=== PATIENT | female | born 1970 | race Asian ===

== ENCOUNTER 2018-01-21 07:31 | Inpatient (IN) | payer MEDICAID ==
[~2018-01-21] VITALS: Ht 147.3 cm; Wt 57.0 kg
[2018-01-21 08:54] LABS: Basophils # (auto) 0 uL; Basophils % (auto) 0.2 % (0.0-2.0); Eosinophils # (auto) 0 uL; Eosinophils % (auto) 0.1 % (0.0-7.0); Hemoglobin 14.2 g/dL (12.2-16.2); Lymphocytes # (auto) 0.4 uL; Mean Corpuscular Volume 81.1 fL (80.0-100.0); Monocytes # (auto) 0.3 uL; Red Cell Distribution Width 13.7 % (11.8-14.3)
[2018-01-21 08:56] LABS: Hematocrit 42.7 % (36.0-46.0); Lymphocytes % (auto) 5.3 % (10.0-50.0); Mean Corpuscular Hgb Conc. 33.3 g/dL (32.0-36.0); Monocytes % (auto) 3.9 % (0.0-12.0); Neutrophils # (auto) 7.6 uL; Neutrophils % (auto) 90.5 % (37.0-80.0); Platelet Count (auto) 330 10^3/uL (140-450); Red Blood Cells 5.27 10^6/uL (4.0-5.20); White Blood Cell 8.4 10^3/uL (4.4-10.8)
[2018-01-21 09:11] LABS: BUN/Creatinine Ratio 15.6; Potassium 3.3 mmol/L (3.5-5.1)
[2018-01-21 09:14] LABS: Bilirubin, Total 0.5 mg/dL (0.2-1.0); Total Protein 7.7 g/dL (6.4-8.2)
[2018-01-21] MEDS ORDERED: diphenhdrAMINE HCL 50 MG/1 ML VL IV ONE ×2 (10:00→21:30)
[2018-01-21] MEDS ORDERED: methylPREDNISolone SOD SUCC 125 MG/2 ML VL IV ONE (10:00)
[2018-01-21] MEDS ORDERED: EPINEPHrine HCL 1 MG/1 ML AMP SC ONE (10:00)
[2018-01-21] MEDS ORDERED: ACETAMINOPHEN 500 MG TAB PO PRN (11:45)
[2018-01-21] MEDS ORDERED: FAMOTIDINE (10MG/ML) 2ML VL IV ONE (11:45)
[2018-01-21] MEDS ORDERED: LORazepam 0.5 MG TAB PO PRN (11:45)
[2018-01-21] MEDS ORDERED: PROMETHAZINE HCL 25 MG/ML 1ML IV PRN (11:45)
[2018-01-21] MEDS ORDERED: HYDROcodone-ACET 5/325MG TAB PO PRN (11:45)
[2018-01-21] MEDS ORDERED: LACTULOSE 20Gm/30ML SOLN PO PRN (11:45)
[2018-01-21] MEDS ORDERED: NITROGLYCERIN 0.4 MG SL TAB SL PRN (11:45)
[2018-01-21] MEDS ORDERED: MORPHINE SULFATE 4 MG/ML SYR/VIAL IV PRN ×2 (11:45)
[2018-01-21] MEDS: SODIUM CHLORIDE 0.9% 1,000 ML IV SCH (12:24)
[2018-01-21] MEDS: methylPREDNISolone SOD SUCC 40 MG/ML VL IV SCH ×2 (12:24→22:02)
[2018-01-21 12:56] LABS: Folate (Folic Acid) 17.18 ng/mL (5.38-24)
[2018-01-21 13:29] LABS: CRP High Sensitivity 0.32 mg/dL (< 0.3)
[2018-01-21 15:10] LABS: Urine Bacteria NONE SEEN /hpf (None Seen); Urine Blood Negative /uL (Negative); Urine Mucus FEW (None Seen); Urine Specific Gravity 1.011 (1.001-1.035); Urine WBC 1 /hpf (0 - 5)
[2018-01-21 15:25] LABS: Alcohol, Urine < 3.0 mg/dL (0-5); Amphetamine Screen, Urine NEGATIVE (NEGATIVE); Barbiturate Scree,Urine NEGATIVE (NEGATIVE); Benzodiazephine Screen, Urine NEGATIVE (NEGATIVE); Cannabinoid Screen, Urine NEGATIVE (NEGATIVE); Cocaine Screen, Urine NEGATIVE (NEGATIVE); Opiate Scree,Urine NEGATIVE (NEGATIVE); Phencyclidine Screen, Urine NEGATIVE (NEGATIVE)
[2018-01-21] MEDS: diphenhdrAMINE HCL 25 MG CAP PO PRN (18:12)
[2018-01-21 20:00] VITALS: BP 89/60
[2018-01-21] MEDS ORDERED: IOHEXOL 350 MG/ML 100ML IJ ONE (20:44)
[2018-01-21 21:48] VITALS: BP 89/60
[2018-01-21] MEDS: FAMOTIDINE (10MG/ML) 2ML VL IV SCH (22:02)
[2018-01-21] MEDS: HYDROCORTONE 1% TOPICAL CREAM 30 GM TUBE TOP SCH (22:02)
[2018-01-22] MEDS: SODIUM CHLORIDE 0.9% 1,000 ML IV SCH ×2 (00:10→12:40)
[2018-01-22] MEDS ORDERED: SULF400T11 PO (00:13)
[2018-01-22] MEDS ORDERED: SIMV-13 PO (00:13)
[2018-01-22] MEDS ORDERED: HYDR25TA4 PO (00:13)
[2018-01-22] MEDS ORDERED: OMEP20CA74 PO (00:13)
[2018-01-22] MEDS ORDERED: ASPI81TA27 PO (00:13)
[2018-01-22 04:58] VITALS: BP 96/57
[2018-01-22] MEDS: diphenhdrAMINE HCL 25 MG CAP PO PRN (05:33)
[2018-01-22 07:08] LABS: Cholesterol 138 mg/dL (< 200); HDL Cholesterol 56 mg/dL (40-59); LDL Cholesterol 72 mg/dL (< 100); Triglycerides 40 mg/dL (< 150)
[2018-01-22 07:48] VITALS: BP 103/59
[2018-01-22] MEDS ORDERED: IOHEXOL 350 MG/ML 100ML IJ ONE (09:10)
[2018-01-22] MEDS: HYDROCORTONE 1% TOPICAL CREAM 30 GM TUBE TOP SCH ×2 (10:00→21:48)
[2018-01-22 11:25] VITALS: BP 102/59
[2018-01-22] MEDS: FAMOTIDINE (10MG/ML) 2ML VL IV SCH ×2 (12:11→21:44)
[2018-01-22] MEDS: methylPREDNISolone SOD SUCC 40 MG/ML VL IV SCH ×2 (12:12→21:44)
[2018-01-22] MEDS: diphenhdrAMINE HCL 50 MG/1 ML VL IV PRN ×2 (15:17→20:14)
[2018-01-22 16:47] VITALS: BP 96/57
[2018-01-22 20:00] VITALS: BP 105/57
[2018-01-22 22:00] VITALS: BP 105/57
[2018-01-23] MEDS: SODIUM CHLORIDE 0.9% 1,000 ML IV SCH (01:14)
[2018-01-23] MEDS: TEMAZEPAM 15 MG CAP PO PRN ×2 (01:15→22:30)
[2018-01-23] MEDS: diphenhdrAMINE HCL 50 MG/1 ML VL IV PRN ×5 (01:15→21:01)
[2018-01-23 05:00] VITALS: BP 99/58
[2018-01-23 06:19] LABS: Basophils # (auto) 0 uL; Eosinophils # (auto) 0 uL; Hemoglobin 11.2 g/dL (12.2-16.2); Lymphocytes # (auto) 0.5 uL; Mean Corpuscular Volume 81.7 fL (80.0-100.0); White Blood Cell 7.7 10^3/uL (4.4-10.8)
[2018-01-23 06:21] LABS: Hematocrit 33.9 % (36.0-46.0); Lymphocytes % (auto) 6.3 % (10.0-50.0); Mean Corpuscular Hemoglobin 27.1 pg (28.0-32.0); Mean Corpuscular Hgb Conc. 33.2 g/dL (32.0-36.0); Monocytes # (auto) 0.2 uL; Monocytes % (auto) 2.1 % (0.0-12.0); Neutrophils % (auto) 91.6 % (37.0-80.0); Platelet Count (auto) 282 10^3/uL (140-450); Red Blood Cells 4.15 10^6/uL (4.0-5.20); Red Cell Distribution Width 14.1 % (11.8-14.3)
[2018-01-23 06:41] LABS: Albumin 2.8 g/dL (3.4-5.0); BUN/Creatinine Ratio 20.3; Bilirubin, Total 0.5 mg/dL (0.2-1.0); Calcium 7.5 mg/dL (8.5-10.1); Potassium 3.7 mmol/L (3.5-5.1); Total Protein 5.9 g/dL (6.4-8.2)
[2018-01-23 09:11] VITALS: BP 104/64
[2018-01-23] MEDS: HYDROCORTONE 1% TOPICAL CREAM 30 GM TUBE TOP SCH ×2 (10:00→22:30)
[2018-01-23] MEDS: FAMOTIDINE (10MG/ML) 2ML VL IV SCH ×2 (10:38→22:29)
[2018-01-23] MEDS: methylPREDNISolone SOD SUCC 40 MG/ML VL IV SCH ×2 (10:38→22:30)
[2018-01-23 13:00] VITALS: BP 110/67
[2018-01-23 17:18] VITALS: BP 125/75
[2018-01-23 22:00] VITALS: BP 93/49
[2018-01-23 22:10] VITALS: BP 95/55
[2018-01-24] MEDS: diphenhdrAMINE HCL 50 MG/1 ML VL IV PRN ×3 (01:08→11:12)
[2018-01-24 05:00] VITALS: BP 101/63
[2018-01-24 07:42] VITALS: BP 106/68
[2018-01-24] MEDS: HYDROCORTONE 1% TOPICAL CREAM 30 GM TUBE TOP SCH (10:00)
[2018-01-24] MEDS: methylPREDNISolone SOD SUCC 40 MG/ML VL IV SCH (11:11)
[2018-01-24] MEDS: FAMOTIDINE (10MG/ML) 2ML VL IV SCH (11:11)
[2018-01-24 11:35] VITALS: BP 100/69
[2018-01-24 12:47] VITALS: BP 100/56
== END 2018-01-24 13:15 | disposition home or self-care (01) | DRG 204 ==
LOC: EDBD 07:31 → ER 07:33 → TELE 07:34 → TELE-EAST 16:41
PROVIDERS: ADMIT Internal Medicine; ATTEND Internal Medicine
DX: R55 Syncope and collapse (principal); E44.1 Mild protein-calorie malnutrition; I10 Essential (primary) hypertension; E87.6 Hypokalemia; E78.5 Hyperlipidemia, unspecified; T37.0X5A Adverse effect of sulfonamides, initial encounter; L27.0 Generalized skin eruption due to drugs and medicaments taken internally; L53.8 Other specified erythematous conditions; K59.00 Constipation, unspecified; F41.9 Anxiety disorder, unspecified; G47.00 Insomnia, unspecified; D64.9 Anemia, unspecified; Z90.49 Acquired absence of other specified parts of digestive tract; Z82.3 Family history of stroke; Y92.89 Other specified places as the place of occurrence of the external cause; Z68.26 Body mass index [BMI] 26.0-26.9, adult
CPT/HCPCS: 36415; 70450; 71045; 71275; 80053; 80061; 80307; 81001; 82550; 82607; 82746; 83516; 84443; 84484; 85025; 85379; 85652; 86141; 86225; 86235; 87086; 93005; 93306; 96361; 96372; 96374; 96375; J0171; J3490